=== PATIENT | female | born 2000 | race Caucasian/White ===

== ENCOUNTER 2020-08-14 02:32 | Emergency (ER) | payer OTHER, SELFPAY ==
--- NOTE | ~2020-08-14 | CT_ITS ---
EXAMINATION: CT facial bones wo con DATE: 08/14/2020 03:21 INDICATION: Status post fall. Trauma to the front of the teeth on a desk. TECHNIQUE: Computed tomography (CT) of the facial bones was performed without intravenous contrast. T he dose-length product was 298.07 mGy-cm. Automated exposure control and iterative reconstruction david hnique were employed. COMPARISON: None FINDINGS: There is acute fracture left aspect of the alveolar ridge of the maxilla at the level of th e incisors and cuspid with evidence for tooth loosening. Nasal bone intact. No mandibular fracture. T emporal mandibular joints are symmetric. Orbits are symmetric without evidence for blowout fracture. Zygomatic arches and pterygoid plates are intact. IMPRESSION: 1. Acute fracture left aspect of the maxillary alveolar ridge with evidence for loosening of several teeth. Reviewed, dictated and finalized at location A.
[2020-08-14 02:32] VITALS: BP 137/98; PULSE 112; RESP 20; TEMP 36.4; O2SAT 97
--- NOTE | 2020-08-14 02:54 | ED.WOUNDLAC ---
HPI - Wound/Laceration General Chief Complaint: Wound/Laceration Stated Complaint: lip laseration Time Seen by Provider: 08/14/20 02:40 Source: patient and family Mode of arrival: ambulatory Limitations: no limitations History of Present Illness HPI narrative: This young woman was playing a virtual reality game, and fell. She developed a laceration 3cm on her upper lip and skin bordering the lip on left upper lip area. She has a laceration inside the lip as well. Teeth 9,10,11 are present and pushed back. Pain has been moderately severe and sharp. Bleeding has ceased. Onset (ago): minute(s) Location: face Place: home Patient tetanus UTD: Yes Context: accidental Associated symptoms: none Treatments prior to arrival: cold therapy Related Data Home Medications Medication Instructions Recorded Confirmed L norgest/e.estradiol-e.estrad See Rx Instructions .ROUTE .COMPLEX 08/14/20 08/14/20 [[facility]] Allergies Allergy/AdvReac Type Severity Reaction Status Date / Time No Known Allergies Allergy Verified 08/14/20 02:41 Review of Systems Constitutional: Constitutional: Reports no additional constitutional complaints Eyes: Eyes: Reports no additional eye complaints ENT: Reports system reviewed and no additional complaints, except as documented Cardiovascular: Cardiovascular: Reports no additional cardiovascular complaints Respiratory: Respiratory: Reports no additional respiratory complaints Gastrointestinal: Gastrointestinal: Reports no additional gastrointestinal complaints Genitourinary: Genitourinary: Reports no additional female genitourinary complaints Musculoskeletal: Musculoskeletal: Reports no additional musculoskeletal complaints Integumentary/Breasts: Skin/Breast: Reports system reviewed and no additional complaints, except as docu Neurologic: Reports system reviewed and no additional complaints, except as documented Psychiatric: Psychiatric: Reports no additional psychiatric complaints Endocrine: Endocrine: Reports no additional endocrine complaints Hematologic/Lymphatic: Hematologic/Lymphatic: Reports no additional hematologic/lymphatic complaints Allergic/Immunologic: Allergic/Immunologic: Reports no additional allergic/immunologic complaints [facility] Past Medical History Medical History (Updated 08/14/20 @ 03:23 by Luis England MD) No significant medical problems Surgical History Surgical History (Updated 08/14/20 @ 03:14 by Luis England MD) S/P ACL surgery Family History Family History (Updated 08/14/20 @ 03:15 by Luis England MD) Other No significant family history Social History Social History (Updated 08/14/20 @ 03:16 by Luis England MD) Tobacco type: e-cigarettes/vaping Alcohol intake: current Alcohol use details: Alcohol use on weekends, sometimes in excess Living arrangements: with family Gender identity (if verbalized by the patient): Female Sexual Orientation (if Verbalized by the Patient): Straight or Heterosexual Exam Const: General: no acute distress and alert Orientation/consciousness: patient oriented x3 HENMT: Head: laceration (3 cm top lip and skin below nose on face on left ) Ears: external ears normal General nose exam: Normal external nose present Throat: posterior oropharynx normal Other: teeth 9,10,11 pushed back Eyes: Pupils: Equal, round and reactive pupils present Neck: Neck: normal visual inspection Other: no tenderness with range of motion demonstrations Chest: Chest palpation & inspection: normal inspection of the chest Resp: Effort & Inspection: normal respiratory effort Auscultation: clear to auscultation bilaterally Cardio: Rate: regular rate Rhythm: regular rhythm GI: GI Palp: Yes Soft to palpation (nontender) Back/Spine/Pelvis: Back: no CVA tenderness Skin: General skin exam: normal color Rashes: no rashes Neuro: General: patient oriented x3 and moves all extremities Extrem: General: normal
[2020-08-14 03:02] LABS: Pregnancy On Board Control Positive; Urine Pregnancy Test Negative
[2020-08-14 03:37] VITALS: BP 137/97; PULSE 101; RESP 20; TEMP 36.6; O2SAT 98
--- NOTE | 2020-08-14 03:50 | PC.NURSE ---
2x2 gauze sent with patient for saliva in mouth. minimal blood on gauze noted. gauze 2x2 applied to left upper lip to cover for transport to [facility].
== END 2020-08-14 03:49 | disposition short-term general hospital (02) ==
PROVIDERS: Emergency Provider Emergency Medicine
DX: S01.511A Laceration without foreign body of lip, initial encounter (principal); W19.XXXA Unspecified fall, initial encounter
CPT/HCPCS: 70486; 81025; 99283; 99284